=== PATIENT | female | born 1970 | race American Indian/Alaskan Native ===

== ENCOUNTER 2017-12-08 15:16 | Inpatient (IN) | payer SELFPAY ==
[2017-12-08] MEDS ORDERED: CATAPRES PO ONE (15:47)
[2017-12-08 16:08] LABS: Basophils # (Auto) 0.1 K/mm3 (0.0-0.1); Basophils % (Auto) 0.4 % (0.0-1.8); Eosinophils # (Auto) 0.1 K/mm3 (0.0-0.4); Eosinophils % (Auto) 0.6 % (0.0-4.3); Hematocrit 34.8 % (30.3-42.9); Hemoglobin 11.6 gm/dl (10.1-14.3); Lymphocytes # (Auto) 1.6 K/mm3 (1.2-5.4); Mean Corpuscular HGB Conc 33 % (30-34); Mean Corpuscular Volume 71 fl (79-97); Monocytes # (Auto) 0.6 K/mm3 (0.0-0.8); Monocytes % (Auto) 5.1 % (0.0-7.3); Platelet Count 204 K/mm3 (140-440); Red Blood Count 4.91 M/mm3 (3.65-5.03); Red Cell Distribution Width 16.7 % (13.2-15.2)
[2017-12-08 16:09] LABS: Mean Corpuscular Hemoglobin 24 pg (28-32)
[2017-12-08 16:26] LABS: BUN/Creatinine Ratio 14; Blood Urea Nitrogen 18 mg/dL (7-17); Calcium 8.6 mg/dL (8.4-10.2); Hemolysis Index 0
[2017-12-08] MEDS ORDERED: VISTARIL PO ONE (16:30)
--- NOTE | 2017-12-08 16:56 | Emergency Department Report ---
ED Chest Pain HPI - General Chief Complaint: Chest Pain Stated Complaint: CHEST PAIN/SOB Time Seen by Provider: 12/08/17 16:20 Source: patient, EMS Mode of arrival: Stretcher Limitations: No Limitations - History of Present Illness Initial Comments: Ms. Roth is a 47-year-old female with history of anxiety and panic attack. She's had previous use of Vistaril hydroxyzine. She not had attack of this while. She is awakened with the sound of a knock at the the door. She fell really nervous when she has been up. She felt sweaty. Symptoms resolved without intervention. She has a history of severe hypertension. She takes losartan, verapamil doxazosin. She unable to recall the medication. MD Complaint: other (heart racing chest pressure) -: Sudden Onset: during rest, awoke with symptoms Pain Location: substernal Severity: mild Severity scale (0 -10): 0 Quality: heaviness Improves With: rest Worsens With: nothing - Related Data Allergies Allergy/AdvReac Type Severity Reaction Status Date / Time codeine Allergy Anaphylaxis Verified 12/08/17 15:42 Heart Score - HEART Score History: Slightly suspicious EKG: Normal Age: 45-65 Risk factors: 1-2 risk factors Troponin: < normal limit HEART Score: 2 ED Review of Systems ROS: Stated complaint: CHEST PAIN/SOB Other details as noted in HPI Comment: All other systems reviewed and negative Constitutional: denies: fever ED Past Medical Hx - Past Medical History Previous Medical History?: Yes Hx Hypertension: Yes Additional medical history: Anxiety - Surgical History Past Surgical History?: Yes Additional Surgical History: Tubuligation - Social History Smoking Status: Never Smoker Substance Use Type: None ED Physical Exam - General Limitations: No Limitations General appearance: alert, in no apparent distress - Head Head exam: Present: atraumatic, normocephalic - Eye Eye exam: Present: normal appearance - ENT ENT exam: Present: mucous membranes moist - Neck Neck exam: Present: normal inspection - Respiratory Respiratory exam: Present: normal lung sounds bilaterally. Absent: respiratory distress, wheezes, rhonchi - Cardiovascular Cardiovascular Exam: Present: regular rate, normal rhythm, normal heart sounds. Absent: systolic murmur, diastolic murmur, rubs, gallop - GI/Abdominal GI/Abdominal exam: Present: soft, normal bowel sounds. Absent: distended, tenderness, guarding, rebound - Extremities Exam Extremities exam: Present: normal inspection - Back Exam Back exam: Present: normal inspection - Neurological Exam Neurological exam: Present: alert, oriented X3 - Psychiatric Psychiatric exam: Present: normal affect, normal mood - Skin Skin exam: Present: warm, dry, intact, normal color. Absent: rash ED Course Vital Signs 12/08/17 12/08/17 15:33 15:54 Temperature 97.9 F Pulse Rate 90 90 Blood Pressure 239/149 239/149 O2 Sat by Pulse 100 Oximetry ED Medical Decision Making - Lab Data Result diagrams: 12/08/17 15:51 12/08/17 15:51 Laboratory Results - last 24 hr 12/08/17 12/08/17 15:51 15:51 WBC 11.6 H RBC 4.91 Hgb 11.6 Hct 34.8 MCV 71 L MCH 24 L MCHC 33 RDW 16.7 H Plt Count 204 Lymph % (Auto) 14.0 [place] % (Auto) 5.1 Eos % (Auto) 0.6 Baso % (Auto) 0.4 Lymph # 1.6 [place] # 0.6 Eos # 0.1 Baso # 0.1 Seg Neutrophils % 79.9 H Seg Neutrophils # 9.3 H Sodium 139 Potassium 2.1 L* Chloride 100.3 Carbon Dioxide 28 Anion Gap 13 BUN 18 H Creatinine 1.3 H Estimated GFR 54 BUN/Creatinine Ratio 14 Glucose 120 H Calcium 8.6 Troponin T < 0.010 Vital Signs - 24 hr 12/08/17 12/08/17 15:33 15:54 Temperature 97.9 F Pulse Rate 90 90 Blood Pressure 239/149 239/149 O2 Sat by Pulse 100 Oximetry - EKG Data 12/08/17 16:57 EKG obtained at 1643 Rate 90 beats a minute normal sinus rhythm no ST elevation normal axis LVH prolonged QT interval QTc 520 ms - Medical Decision Making Ms. Roth presents with palpitations and chest pain. She feels as if she is having an anxiety attack which she's had before addressed with hydroxyzine/ Vistaril. She explains that she does have history of hypokalemia. She does not take her potassium tablets as she should. Patient unable to recall her medications. I assume she is taking diuretic. She is admitted to hospitalist service for potassium repletion and blood pressure control. Her pain is atypical for ACS. HEART score low risk at 2. Without persistent chest pain I do not suspect pulmonary embolism. I am concerned the patient is at risk for arrhythmia. Critical Care Time: Yes (40) Critical care attestation.: If time is entered above; I have spent that time in minutes in the direct care of this critically ill patient, excluding procedure time. Patient for multiple interventions and reassessments. I was concerned for severely elevated blood pressure.Concern for severe hypokalemia with prolonged QT interval. ED Disposition Clinical Impression: Hypokalemia, Hypertensive urgency, Chest pain, Anxiety Disposition: OP ADMIT IP TO THIS HOSP Is pt being admited?: Yes Does the pt Need Aspirin: Yes Condition: Stable Time of Disposition: 17:08
[2017-12-08] MEDS ORDERED: K-DUR PO ONE ×3 (16:58→19:08)
[2017-12-08] MEDS ORDERED: NORMODYNE IV ONE (17:03)
--- NOTE | 2017-12-08 17:07 | History and Physical Report ---
History of Present Illness History of present illness: - General Chief Complaint: Chest Pain Stated Complaint: CHEST PAIN/SOB Time Seen by Provider: 12/08/17 16:20 Source: patient, EMS Mode of arrival: Stretcher Limitations: No Limitations - History of Present Illness Initial Comments: Ms. Roth is a 47-year-old female with history of anxiety and panic attack. She's had previous use of Vistaril hydroxyzine. She not had attack of this while. She is awakened with the sound of a knock at the the door. She fell really nervous when she has been up. She felt sweaty. Symptoms resolved without intervention. She has a history of severe hypertension. She takes losartan, verapamil doxazosin. She unable to recall the medication. MD Complaint: other (heart racing chest pressure) -: Sudden Onset: during rest, awoke with symptoms Pain Location: substernal Severity: mild Severity scale (0 -10): 0 Quality: heaviness Improves With: rest Worsens With: nothing - Related Data Allergies Allergy/AdvReac Type Severity Reaction Status Date / Time codeine Allergy Anaphylaxis Verified 12/08/17 15:42 Heart Score - HEART Score History: Slightly suspicious EKG: Normal Age: 45-65 Risk factors: 1-2 risk factors Troponin: < normal limit HEART Score: 2 ED Review of Systems ROS: Stated complaint: CHEST PAIN/SOB Other details as noted in HPI Comment: All other systems reviewed and negative Constitutional: denies: fever ED Past Medical Hx - Past Medical History Previous Medical History?: Yes Hx Hypertension: Yes Additional medical history: Anxiety - Surgical History Past Surgical History?: Yes Additional Surgical History: Tubuligation - Social History Smoking Status: Never Smoker Substance Use Type: None ED Physical Exam Medications and Allergies Allergies Allergy/AdvReac Type Severity Reaction Status Date / Time codeine Allergy Anaphylaxis Verified 12/08/17 15:42 Active Meds: Active Medications Potassium Chloride (Kcl 10meq/100ml) 10 meq in 100 mls @ 100 mls/hr IV Q1H MICHAEL Stop: 12/08/17 18:59 Exam - Constitutional Vitals: Temp Pulse Resp BP Pulse Ox 97.9 F 90 239/149 100 12/08/17 15:33 12/08/17 15:54 12/08/17 15:54 12/08/17 15:33 Results - Labs CBC & Chem 7: 12/08/17 15:51 12/08/17 15:51 Labs: Abnormal lab results 12/08/17 12/08/17 Range/Units 15:51 15:51 WBC 11.6 H (4.5-11.0) K/mm3 MCV 71 L (79-97) fl MCH 24 L (28-32) pg RDW 16.7 H (13.2-15.2) % Seg Neutrophils % 79.9 H (40.0-70.0) % Seg Neutrophils # 9.3 H (1.8-7.7) K/mm3 Potassium 2.1 L* (3.6-5.0) mmol/L BUN 18 H (7-17) mg/dL Creatinine 1.3 H (0.7-1.2) mg/dL Glucose 120 H (65-100) mg/dL
[2017-12-08] MEDS ORDERED: MAGNESIUM SULFATE IV ONE (17:08)
[2017-12-08] MEDS ORDERED: BABY ASPIRIN PO ONE (17:09)
[2017-12-08] MEDS ORDERED: NACL 0.45% 2,000 ML IV SCH (18:00)
[2017-12-08] MEDS ORDERED: MAGNESIUM SULFATE 1 GM in NACL 0.9% 50 ML IV ONE (18:00)
[2017-12-08] MEDS: KCL 10MEQ/100ML 10 MEQ/100 ML BAG IV SCH (18:34)
[2017-12-08] MEDS ORDERED: APRESOLINE IV ONE (21:00)
[2017-12-08] MEDS ORDERED: LOPRESSOR PO ONE (21:00)
[2017-12-08] MEDS ORDERED: ZOFRAN IV PRN (23:01)
[2017-12-08] MEDS ORDERED: SODIUM CHLORIDE FLUSH SYRINGE 10 ML IV PRN (23:01)
--- NOTE | 2017-12-08 23:01 | History and Physical Report ---
History of Present Illness Date of examination: 12/08/17 History of present illness: 47-year-old woman with a history of hypertension, anxiety, panic attack states she is compliant with medication comes emergency room because she did not feel well today. She states she was awoken from sleep by a sound outside, she became anxious, diaphoretic and experienced tightness in the left side of her chest which she stated lasted for about 20 minutes, intensity 5/10, no radiation , she can identify exacerbating or relieving factors. Admits to nausea, shortness of breath. Blood pressure upon arrival was very elevated. Medications were given for blood pressure control, her potassium and magnesium were low and these were repleted. The patient was set for discharge however now she states she does not feel well and she is very sleepy secondary to medications that were given and nauseous Review of systems Constitutional: no weight loss, chills Ears, eyes, nose, mouth and throat: no nasal congestion, no nasal discharge, no sinus pressure, no vision change, no red eye. Neck: No neck pain or rigidity. Cardiovascular: no palpitations Respiratory: No cough, shortness of breath Gastrointestinal: no abdominal pain, hematochezia Genitourinary : no dysuria, frequency , no hematuria Musculoskeletal: no joint swelling or muscle ache Integumentary: no rash, no pruritis Neurological: no parathesias, no numbness, no focal weakness Endocrine: no cold or heat intolerance, no polyuria or polydipsia Hematologic/Lymphatic: no easy bruising, no easy bleeding, no gland swelling Allergic/Immunologic: no urticaria, no angioedema. PAST MEDICAL HISTORY:hypertension, anxiety, panic attack PAST SURGICAL HISTORY: Tubal ligation SOCIAL HISTORY: Denies alcohol , tobacco, drugs FAMILY HISTORY: Hypertension Medications and Allergies Allergies Allergy/AdvReac Type Severity Reaction Status Date / Time codeine Allergy Anaphylaxis Verified 12/08/17 15:42 Home Medications Medication Instructions Recorded Confirmed Last Taken Type Metoprolol [Lopressor TAB] 25 mg PO BID #20 tablet 12/08/17 Unknown Rx hydrALAZINE [Apresoline TAB] 50 mg PO Q8H #30 tablet 12/08/17 Unknown Rx hydrOXYzine PAMOATE [Vistaril] 25 mg PO PRN PRN 12/08/17 12/08/17 Unknown History Active Meds: Active Medications Sodium Chloride (Nacl 0.45%) 2,000 mls @ 500 mls/hr IV DIRECT MICHAEL Last Admin: 12/08/17 18:56 Dose: 500 mls/hr Exam - Physical Exam Narrative exam: Gen. appearance: Patient lying in bed, no apparent distress HEENT: Normocephalic, atraumatic, pupils equally round and reactive to light, extraocular movement intact, and no sclericterus,. No JVD or thyromegaly or nodule,neck supple, no carotid bruit ,mucous membranes moist, no exudate or erythema Heart: S1, S2, regular rate and rhythm Lungs: Clear to auscultation bilaterally, breathing comfortable Abdomen: Positive bowel sounds, nontender, nondistended, no organomegaly Extremity: No edema, cyanosis, clubbing Skin: No rash, nodules, warm, dry Neuro: Oriented 3, cranial nerves II-12 intact, speech is fluent, motor and sensory intact - Constitutional Vitals: Temp Pulse Resp BP Pulse Ox 98 F 67 22 173/74 98 12/08/17 19:15 12/08/17 22:16 12/08/17 22:16 12/08/17 22:16 12/08/17 22:16 Results - Labs CBC & Chem 7: 12/08/17 15:51 12/08/17 17:22 Labs: Abnormal lab results 12/08/17 12/08/17 12/08/17 Range/Units 15:51 15:51 17:22 WBC 11.6 H (4.5-11.0) K/mm3 MCV 71 L (79-97) fl MCH 24 L (28-32) pg RDW 16.7 H (13.2-15.2) % Seg Neutrophils % 79.9 H (40.0-70.0) % Seg Neutrophils # 9.3 H (1.8-7.7) K/mm3 Potassium 2.1 L* (3.6-5.0) mmol/L BUN 18 H (7-17) mg/dL Creatinine 1.3 H (0.7-1.2) mg/dL Glucose 120 H (65-100) mg/dL Magnesium 1.60 L (1.7-2.3) mg/dL 12/08/17 Range/Units 17:22 WBC (4.5-11.0) K/mm3 MCV (79-97) fl MCH (28-32) pg RDW (13.2-15.2) % Seg Neutrophils % (40.0-70.0) % Seg Neutrophils # (1.8-7.7) K/mm3 Potassium 2.3 L* (3.6-5.0) mmol/L BUN (7-17) mg/dL Creatinine (0.7-1.2) mg/dL Glucose (65-100) mg/dL Magnesium (1.7-2.3) mg/dL - Imaging and Cardiology EKG: image reviewed Assessment and Plan Assessment Hypertensive urgency Panic attack Chest pain most likely secondary to #1, 2 Plan Admit to medicine Start IV fluid, blood pressure systolic 130 Recheck potassium level, check cardiac enzymes Consider stress test if chest pain is persistent DVT prophylaxis Discussed with family at bedside
[2017-12-08] MEDS ORDERED: NACL 0.9% 1000 ML 500 ML IV ONE (23:06)
[2017-12-08] MEDS ORDERED: NACL 0.45% 1000 ML 1,000 ML IV SCH (23:45)
[2017-12-09 00:06] LABS: Calcium 7.7 mg/dL (8.4-10.2)
[2017-12-09 00:21] LABS: Creatine Kinase MB 3.8 ng/mL (0.0-4.0)
[2017-12-09] MEDS: KCL 10MEQ/100ML 10 MEQ/100 ML BAG IV SCH ×7 (02:17→23:05)
[2017-12-09 06:06] LABS: Basophils % (Auto) 0.5 % (0.0-1.8); Eosinophils # (Auto) 0.1 K/mm3 (0.0-0.4); Eosinophils % (Auto) 0.5 % (0.0-4.3); Hematocrit 30.9 % (30.3-42.9); Hemoglobin 10.4 gm/dl (10.1-14.3); Lymphocytes # (Auto) 2.2 K/mm3 (1.2-5.4); Lymphocytes % (Auto) 21.2 % (13.4-35.0); Mean Corpuscular HGB Conc 34 % (30-34); Mean Corpuscular Volume 72 fl (79-97); Monocytes # (Auto) 0.7 K/mm3 (0.0-0.8); Monocytes % (Auto) 6.7 % (0.0-7.3); Platelet Count 198 K/mm3 (140-440); Red Blood Count 4.29 M/mm3 (3.65-5.03); Red Cell Distribution Width 16.8 % (13.2-15.2)
[2017-12-09 06:09] LABS: Mean Corpuscular Hemoglobin 24 pg (28-32)
[2017-12-09 06:28] LABS: Calcium 7.4 mg/dL (8.4-10.2)
[2017-12-09 06:56] LABS: Creatine Kinase MB 3.3 ng/mL (0.0-4.0)
--- NOTE | 2017-12-09 09:34 | XRay Report ---
Single view chest: History: Chest pain. Findings: Cardiomegaly. Trachea is midline. No consolidation, pneumothorax or pleural effusion. Impression: Cardiomegaly. No acute lung changes.
[2017-12-09] MEDS: LOVENOX SUB-Q SCH (10:42)
[2017-12-09] MEDS: SODIUM CHLORIDE FLUSH SYRINGE 10 ML IV SCH ×2 (10:42→21:16)
[2017-12-09] MEDS ORDERED: APRESOLINE IV NR (11:59)
[2017-12-09] MEDS ORDERED: MAGNESIUM SULFATE 2GM/50ML 2 GM/50 ML BAG IV ONE (12:00)
[2017-12-09] MEDS ORDERED: K-DUR PO SCH (12:00)
[2017-12-09] MEDS: APRESOLINE IV PRN ×2 (17:09→21:08)
[2017-12-09] MEDS: TYLENOL PO PRN (17:10)
--- NOTE | 2017-12-09 18:13 | Progress Note ---
Assessment and Plan Assessment and plan: --Severe hypokalemia; potassium of 2.4 Replace, 40 mEq by mouth, 40 mEq IV, recheck potassium at 6:00 Continue personnel monitor --Hypomagnesemia; magnesium sulfate 2 g IV Recheck magnesium levels --Hypertensive urgency; the patient's moderate control Continue current antihypertensives and when necessary medications --Atypical chest pain; noncardiac Cardiac enzymes 4 negative, EKG no acute ST-T changes Closely monitor --Morbid obesity; counseling then, advised diet modification and exercise as tolerated Weight reduction , when medically stable --DVT prophylaxis; Lovenox Check electrolytes, if corrected may be discharged home tomorrow Plan of care discussed with the patient and her nurse History Interval history: Patient seen and examined medical records reviewed Patient has persistent hypokalemia, probably secondary to noncompliance Repeat potassium level at 2.4 Patient feels better no new complaints Vital signs reviewed Denies chest pain or shortness of breath Hospitalist Physical - Constitutional Vitals: Temp Pulse Resp BP Pulse Ox 98.4 F 84 20 206/113 98 12/09/17 16:41 12/09/17 16:41 12/09/17 16:41 12/09/17 16:41 12/09/17 16:41 General appearance: Present: no acute distress, well-nourished, obese (morbidly obese) - EENT Eyes: Present: PERRL, EOM intact - Neck Neck: Present: supple, normal ROM - Respiratory Respiratory effort: normal - Cardiovascular Rhythm: regular Heart Sounds: Present: S1 & S2 - Extremities Extremities: no ischemia, No edema - Abdominal General gastrointestinal: soft, non-tender, non-distended, normal bowel sounds - Integumentary Integumentary: Present: clear, warm - Psychiatric Psychiatric: appropriate mood/affect, cooperative - Neurologic Neurologic: CNII-XII intact, moves all extremities Results - Labs CBC & Chem 7: 12/09/17 05:35 12/09/17 10:33 Labs: Laboratory Last Values WBC 10.5 K/mm3 (4.5-11.0) 12/09/17 05:35 RBC 4.29 M/mm3 (3.65-5.03) 12/09/17 05:35 Hgb 10.4 gm/dl (10.1-14.3) 12/09/17 05:35 Hct 30.9 % (30.3-42.9) 12/09/17 05:35 MCV 72 fl (79-97) L 12/09/17 05:35 MCH 24 pg (28-32) L 12/09/17 05:35 MCHC 34 % (30-34) 12/09/17 05:35 RDW 16.8 % (13.2-15.2) H 12/09/17 05:35 Plt Count 198 K/mm3 (140-440) 12/09/17 05:35 Lymph % (Auto) 21.2 % (13.4-35.0) 12/09/17 05:35 [place] % (Auto) 6.7 % (0.0-7.3) 12/09/17 05:35 Eos % (Auto) 0.5 % (0.0-4.3) 12/09/17 05:35 Baso % (Auto) 0.5 % (0.0-1.8) 12/09/17 05:35 Lymph # 2.2 K/mm3 (1.2-5.4) 12/09/17 05:35 [place] # 0.7 K/mm3 (0.0-0.8) 12/09/17 05:35 Eos # 0.1 K/mm3 (0.0-0.4) 12/09/17 05:35 Baso # 0.0 K/mm3 (0.0-0.1) 12/09/17 05:35 Seg Neutrophils % 71.1 % (40.0-70.0) H 12/09/17 05:35 Seg Neutrophils # 7.4 K/mm3 (1.8-7.7) 12/09/17 05:35 D-Dimer 208.99 ng/mlDDU (0-234) 12/08/17 17:22 Sodium 141 mmol/L (137-145) 12/09/17 05:35 Potassium 2.4 mmol/L (3.6-5.0) L* 12/09/17 10:33 Chloride 101.3 mmol/L (98-107) 12/09/17 05:35 Carbon Dioxide 26 mmol/L (22-30) 12/09/17 05:35 Anion Gap 16 mmol/L 12/09/17 05:35 BUN 16 mg/dL (7-17) 12/09/17 05:35 Creatinine 1.2 mg/dL (0.7-1.2) 12/09/17 05:35 Estimated GFR 59 ml/min 12/09/17 05:35 BUN/Creatinine Ratio 13 % 12/09/17 05:35 Glucose 99 mg/dL (65-100) 12/09/17 05:35 Calcium 7.4 mg/dL (8.4-10.2) L 12/09/17 05:35 Magnesium 1.60 mg/dL (1.7-2.3) L 12/09/17 05:35 Total Creatine Kinase 182 units/L (30-135) H 12/09/17 05:35 CK-MB (CK-2) 3.3 ng/mL (0.0-4.0) 12/09/17 05:35 CK-MB (CK-2) Rel Index 1.8 (0-4) 12/09/17 05:35 Troponin T < 0.010 ng/mL (0.00-0.029) 12/09/17 05:35
--- NOTE | 2017-12-09 18:29 | Event Note ---
Date: 12/09/17 Patient with severe hypokalemia, hypomagnesemia Advised 40 mEq by mouth, 40 mEq IV KCl, however patient Received only 10 mEq IV KCl, and 2 g IV magnesium Discussed with the nurse Ammy, advised 40 mEq by mouth stat, Requested stat potassium, magnesium levels Replace K and Mag as needed
[2017-12-09] MEDS: LOPRESSOR PO SCH (21:09)
[2017-12-09] MEDS ORDERED: K-DUR PO ONE (22:00)
[2017-12-10] MEDS: APRESOLINE IV PRN (04:16)
[2017-12-10] MEDS: TYLENOL PO PRN (07:20)
[2017-12-10 07:45] LABS: BUN/Creatinine Ratio 12; Blood Urea Nitrogen 13 mg/dL (7-17); Calcium 7.7 mg/dL (8.4-10.2); Hemolysis Index 196
[2017-12-10 08:19] VITALS: BP 166/94
--- NOTE | 2017-12-10 08:39 | Discharge Summary ---
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 Hospitalization Condition: Stable Disposition: DC-01 TO HOME OR SELFCARE Time spent for discharge: 33 min Core Measure Documentation - Palliative Care Palliative Care/ Comfort Measures: Not Applicable - Core Measures Any of the following diagnoses?: none Exam - Constitutional Vitals: Temp Pulse Resp BP Pulse Ox 98.5 F 90 18 166/94 97 12/10/17 08:00 12/10/17 08:00 12/10/17 08:00 12/10/17 08:00 12/10/17 08:00 General appearance: Present: no acute distress, well-nourished - EENT Eyes: Present: PERRL, EOM intact - Neck Neck: Present: supple, normal ROM - Respiratory Respiratory effort: normal Respiratory: negative: rales, rhonchi, wheezing - Cardiovascular Rhythm: regular Heart Sounds: Present: S1 & S2 - Extremities Extremities: no ischemia, No edema - Abdominal General gastrointestinal: Present: soft, non-tender, non-distended, normal bowel sounds - Integumentary Integumentary: Present: clear, warm - Musculoskeletal Musculoskeletal: strength equal bilaterally - Psychiatric Psychiatric: appropriate mood/affect, cooperative - Neurologic Neurologic: CNII-XII intact, moves all extremities Plan Activity: no restrictions Diet: low salt Follow up with: PRIMARY CARE, [Primary Care Provider] - 7 Days Forms: Work/School Release Form Prescriptions: hydrALAZINE [Apresoline TAB] 50 mg PO Q8H #30 tablet Metoprolol [Lopressor TAB] 25 mg PO BID #20 tablet Potassium Chloride 20 meq PO QDAY #7 packet
[2017-12-10 09:12] LABS: BUN/Creatinine Ratio 12; Blood Urea Nitrogen 13 mg/dL (7-17); Hemolysis Index 5
[2017-12-10] MEDS ORDERED: K-DUR PO ONE (10:34)
[2017-12-10] MEDS: LOPRESSOR PO SCH (11:03)
[2017-12-10] MEDS: SODIUM CHLORIDE FLUSH SYRINGE 10 ML IV SCH (11:04)
[2017-12-10] MEDS: LOVENOX SUB-Q SCH (11:04)
== END 2017-12-10 12:00 | disposition home or self-care (01) | DRG 305 ==
LOC: ED 15:16 → 4A 23:01
PROVIDERS: ADMIT Internal Medicine; ATTEND Internal Medicine
DX: I16.0 Hypertensive urgency (principal); Z68.41 Body mass index [BMI] 40.0-44.9, adult; E87.6 Hypokalemia; R07.89 Other chest pain; E83.42 Hypomagnesemia; E66.01 Morbid (severe) obesity due to excess calories; F41.0 Panic disorder [episodic paroxysmal anxiety]; Z88.5 Allergy status to narcotic agent; Z98.51 Tubal ligation status; Z82.49 Family history of ischemic heart disease and other diseases of the circulatory system; Z71.89 Other specified counseling
CPT/HCPCS: 36415; 71045; 80048; 82550; 82553; 83735; 84132; 84484; 85025; 85379; 93005; 93010; J0360; J1650; J3475; J3480; J7030; Q0177